=== PATIENT | male | born 2000 | race Hispanic/Latino ===

== ENCOUNTER 2022-01-12 14:45 | Emergency (ER) | payer BC, OTHER | END 2022-01-12 16:02 | disposition home or self-care (01) | LOC: CSHERS 14:45 | DX: S06.9X1A Unspecified intracranial injury with loss of consciousness of 30 minutes or less, initial encounter (principal); W03.XXXA Other fall on same level due to collision with another person, initial encounter; Y93.66 Activity, soccer | CPT/HCPCS: 70450 ==